=== PATIENT | female | born 2000 | race Two or more races ===

== ENCOUNTER 2023-01-24 04:17 | Emergency (ER) | payer OTHER ==
[~2023-01-24] VITALS: Ht 172.7 cm; Wt 89.4 kg
== END 2023-01-24 05:12 | disposition home or self-care (01) ==
LOC: ER 04:17
DX: S01.01XA Laceration without foreign body of scalp, initial encounter (principal); W18.39XA Other fall on same level, initial encounter; Y93.89 Activity, other specified; Y92.018 Other place in single-family (private) house as the place of occurrence of the external cause; Y99.9 Unspecified external cause status